=== PATIENT | female | born 1975 | race Two or more races ===

== ENCOUNTER 2019-03-10 19:39 | Emergency (ER) | payer SELFPAY ==
[~2019-03-10] VITALS: Ht 149.9 cm; Wt 63.0 kg
[2019-03-10 19:50] VITALS: BP 170/82
--- NOTE | 2019-03-10 21:45 | PHYS DOC ---
Past Medical History Past Medical History: No Pertinent History (ALHAJI PEREZ APRN) Alcohol Use: None Drug Use: None (ALHAJI PEREZ APRN) Attending Signature I have participated in the care of this patient and I have reviewed and agree with all pertinent clinical information above including history, exam, and recommendations. (HORTENSIA KWONG MD) Adult General Chief Complaint Chief Complaint: SHOULDER INJURY [facility] HPI Patient is a 44 year old female who presents to the emergency department with complaints of right shoulder pain for the last month. Patient denies any known injury, numbness, tingling, or weakness of the affected extremity. She states that she moves her arm constantly her job. She denies any medical or surgical history. Patient currently rates her pain a 5 out of 10 on the pain scale, she denies any alleviating factors, the pain increases with movement. All other ROS is neg unless otherwise noted in HPI. (ALHAJI PEREZ APRN) Review of Systems Review of Systems See Above (ALHAJI PEREZ APRN) Allergies Allergies Allergies Coded Allergies Type Severity Reaction Last Updated Verified No Known Drug Allergies 03/10/19 No (HORTENSIA KWONG MD) Physical Exam Physical Exam See Above Constitutional: Well developed, well nourished, no acute distress, non-toxic appearance. [] HENT: Normocephalic, atraumatic, bilateral external ears normal, oropharynx moist, no oral exudates, nose normal. [] Eyes: PERRLA, EOMI, conjunctiva normal, no discharge. [] Neck: Normal range of motion, no stridor. [] Cardiovascular:Heart rate regular rhythm Lungs & Thorax: Respirations even and unlabored, no retractions, no respiratory distress Skin: Warm, dry, no erythema, no rash. [] Extremities: R shoulder anterior and lateral TTP, No cyanosis, no clubbing, ROM limited due to pain, RUE strength 5/5, no edema. [] Neurologic: Alert and oriented X 3, no focal deficits noted. [] Psychologic: Affect normal, judgement normal, mood normal. [] (ALHAJI PEREZ APRN) Current Patient Data Vital Signs Vital Signs Date Time Temp Pulse Resp B/P (MAP) Pulse Ox O2 Delivery O2 Flow Rate FiO2 03/10/19 19:50 97.5 53 17 170/82 (111) 99 Room Air 97.5 (HORTENSIA KWONG MD) EKG EKG [] (ALHAJI PEREZ APRN) Radiology/Procedures Radiology/Procedures [] (ALHAJI PEREZ APRN) Course & Med Decision Making Course & Med Decision Making Pertinent Labs and Imaging studies reviewed. (See chart for details dx: medical screening exam A medical screening exam was performed, patient was found to have no emergent medical condition. The plan of care would've included: An x-ray and prescriptions. However, the patient eloped after talking with registration. The patient was given a list of community resources prior to eloping. [] (ALHAJI PEREZ APRN) Dragon Disclaimer Dragon Disclaimer This electronic medical record was generated, in whole or in part, using a voice recognition dictation system. (ALHAJI PEREZ APRN) Departure Departure Impression: Primary Impression: Encounter for medical screening examination Disposition: 01 HOME, SELF-CARE (pt eloped after speaking with registration) Condition: STABLE Referrals: NO PCP (PCP) ALHAJI PEREZ APRN Mar 10, 2019 21:45 HORTENSIA KWONG MD Mar 14, 2019 02:05
== END 2019-03-10 20:29 | disposition home or self-care (01) ==
LOC: ER 19:39
DX: M25.511 Pain in right shoulder (principal)
CPT/HCPCS: 99281